=== PATIENT | female | born 1960 | race American Indian/Alaskan Native ===

== ENCOUNTER 2016-09-05 06:11 | Emergency (ER) | payer OTHER ==
[2016-09-05] MEDS ORDERED: ZOFRAN ONE (06:17)
[2016-09-05] MEDS ORDERED: ZOFRAN IV ONE (06:35)
[2016-09-05 07:01] VITALS: BP 106/56
[2016-09-05 07:14] LABS: Basophils % (Auto) 0.1 % (0.0-1.8); Eosinophils % (Auto) 0.1 % (0.0-4.3); Hematocrit 35.1 % (30.3-42.9); Hemoglobin 11.5 gm/dl (10.1-14.3); Mean Corpuscular HGB Conc 33 % (30-34); Mean Corpuscular Hemoglobin 29 pg (28-32); Mean Corpuscular Volume 88 fl (79-97); Platelet Count 274 K/mm3 (140-440); Red Blood Count 3.98 M/mm3 (3.65-5.03); White Blood Count 3.2 K/mm3 (4.5-11.0)
[2016-09-05 08:18] LABS: Albumin 3.6 g/dL (3.9-5); BUN/Creatinine Ratio 7.33; Bilirubin,Total 0.7 mg/dL (0.1-1.2); Calcium 9.4 mg/dL (8.4-10.2); Chloride 100.5 mmol/L (98-107); Potassium 3.5 mmol/L (3.6-5.0); Total Protein 7.3 g/dL (6.3-8.2)
== END 2016-09-05 08:50 | disposition left against medical advice (07) ==
LOC: ED 06:11
DX: R10.9 Unspecified abdominal pain (principal); R11.2 Nausea with vomiting, unspecified; Z53.21 Procedure and treatment not carried out due to patient leaving prior to being seen by health care provider
CPT/HCPCS: 36415; 80053; 83690; 85025; 96374; J2405

== ENCOUNTER 2016-09-28 12:37 | Emergency (ER) | payer OTHER ==
[2016-09-28 13:09] VITALS: BP 143/100
--- NOTE | 2016-09-28 13:22 | Emergency Department Report ---
Chief Complaint: Abdominal Pain Stated Complaint: STAGE 4 PANC CA/SEVERE ABD PAIN/LOW BP Time Seen by Provider: 09/28/16 13:13 - HPI History of Present Illness: 55-year-old -[place] female with a past medical history of stage IV pancreatic cancer comes in today for pain that is not relieved by her Dilaudid. Patient reports that she is on Dilaudid 2.5 mg and has been taken to but she still reports pain is a 9 out of 10. Patient is on a bowel regimen at that indication such as lactulose and MiraLAX Colace. Patient denies any nausea vomiting or diarrhea today she did report to the nurse that she last bowel movement was today. Patient does have a history of partial small bowel blockage. - Exam Vital Signs: Vital Signs 09/28/16 13:00 Temperature 97.3 F L Pulse Rate 110 H Respiratory 20 Rate Blood Pressure 143/100 O2 Sat by Pulse 100 Oximetry Physical Exam: Patient alert and oriented she is very cachectic. Cardiovascular tachycardic respiratory clear to auscultation abdomen bowel sounds present tender to palpate stomach is distended she does have a surgical incision at the vertical midline. MSE screening note: Focused history and physical exam performed. Due to findings the following was ordered: patient will be seen by main er. ED Disposition for MSE Condition: Stable Instructions: Abdominal Pain (ED)
[2016-09-28 14:14] LABS: Basophils % (Auto) 0.5 % (0.0-1.8); Hematocrit 28.4 % (30.3-42.9); Hemoglobin 8.8 gm/dl (10.1-14.3); Mean Corpuscular HGB Conc 31 % (30-34); Mean Corpuscular Hemoglobin 27 pg (28-32); Mean Corpuscular Volume 88 fl (79-97); Platelet Count 366 K/mm3 (140-440); Red Blood Count 3.25 M/mm3 (3.65-5.03); Red Cell Distribution Width 17.4 % (13.2-15.2); White Blood Count 9.3 K/mm3 (4.5-11.0)
[2016-09-28 14:36] LABS: Albumin 2.9 g/dL (3.9-5); Albumin/Globulin Ratio 0.7 %; Bilirubin,Total 0.3 mg/dL (0.1-1.2); Calcium 8.5 mg/dL (8.4-10.2); Potassium 4.2 mmol/L (3.6-5.0)
--- NOTE | 2016-09-30 10:18 | ED Elopement Review ---
ED Pt Elopement review - Results review Lab results: Laboratory Tests 09/28/16 09/28/16 14:01 14:01 WBC 9.3 RBC 3.25 L Hgb 8.8 L Hct 28.4 L MCV 88 MCH 27 L MCHC 31 RDW 17.4 H Plt Count 366 Lymph % (Auto) 25.5 Jewell % (Auto) 6.2 Eos % (Auto) 1.0 Baso % (Auto) 0.5 Lymph # 2.4 Jewell # 0.6 Eos # 0.1 Baso # 0.0 Seg Neutrophils % 66.8 Seg Neutrophils # 6.2 Sodium 142 Potassium 4.2 Chloride 106.0 Carbon Dioxide 23 Anion Gap 17 BUN 6 L Creatinine 1.2 Estimated GFR 57 BUN/Creatinine Ratio 5.00 Glucose 83 Calcium 8.5 Total Bilirubin 0.3 AST 19 ALT 6 L Alkaline Phosphatase 167 H Total Protein 7.0 Albumin 2.9 L Albumin/Globulin Ratio 0.7 Lipase 21 - Call Back decision Pt Call Back Decision: No action required
== END 2016-09-28 19:15 | disposition left against medical advice (07) ==
LOC: ED 12:37
DX: R10.9 Unspecified abdominal pain (principal); Z53.21 Procedure and treatment not carried out due to patient leaving prior to being seen by health care provider
CPT/HCPCS: 36415; 80053; 83690; 85025